=== PATIENT | female | born 1970 | race Caucasian/White ===

== ENCOUNTER → 2019-08-08 13:58 | Outpatient (CLI) | payer OTHER, SELFPAY ==
--- NOTE | 2019-08-08 14:27 | BI_ITS ---
MAMMOGRAPHY - BILATERAL SCREENING REASON FOR EXAM: Female, 49 years old. Routine annual screening examination. PERTINENT HISTORY: Non-contributory. TECHNIQUE: Digital bilateral breast eliana (3D mammographic acquisition) in the CC and MLO projections. 2-D mediolateral oblique (MLO) and craniocaudad (CC) views of both breasts were obtained. CAD: Full Field Digital Mammography with Computer Added Detection was performed. COMPARISON: Comparison is made with prior examination of August 11, 2014. FINDINGS: Breast Composition: The breasts are extremely dense, which lowers the sensitivity of mammography. There are no dominant masses or suspicious calcifications. No other significant abnormalities are identified. There has been no significant change since the prior study. BI/SCREEN MAMM (CAD) W/ELIANA BILAT IMPRESSION: Stable bilateral screening mammogram. Yearly follow-up mammogram recommended. (A) ASSESSMENT CATEGORY: BIRADS Category 1: Negative. A letter regarding these results will be sent to the patient by the facility within 30 days. Approximately 10% of breast cancers are not detected by mammography. A normal mammogram should not delay biopsy of a clinically suspicious abnormality. [id number] Electronically Signed: Alphonso Saucedo, at 15:45 EST , Service support ,
== END ==
PROVIDERS: Family Provider Family Medicine; PCP Family Medicine; Referring Provider Obstetrics & Gynecology; Visit Provider Obstetrics & Gynecology
DX: Z12.31 Encounter for screening mammogram for malignant neoplasm of breast (principal)
CPT/HCPCS: 77063; 77067

== ENCOUNTER → 2023-02-22 | Outpatient (CLI) | payer BC, SELFPAY ==
--- NOTE | 2023-02-22 | EMB_PTH ---
PATIENT: JULIANA PEREZ LOC: [facility] U#:[id number] AGE/SX: 52/F ROOM: RE02/22/[address]: ОЛЬГА Cardenas : 1970 BED: DIS: 02/22/2023 SPEC #: [id number] RECD: 02/22/23 15:05 STATUS: ASH REAriana #: [id number] SAEID: 02/22/23 00:[address]: Barbara Ford NP DEPT: SURGICAL PATHOLOGY RECD BY: Neyda Tarango ENTERED: 02/23/23 07:55 SP TYPE: ENDOM BX/C OSWALD DR: Dr. Hakan Yu MD Tissues: Endometrium, NOS Procedures: Surgery Specimen Level IV HEADER OPERATION: Endometrial biopsy PRE-OP DIAGNOSIS: Abnormal uterine bleeding TISSUE SUBMITTED: Endometrial tissue MICROSCOPIC DIAGNOSIS Endometrium, biopsy: Disordered proliferative endometrium to simple hyperplasia without atypia. AM:ozzie 02/26/2023 COMMENT Case has been reviewed in consultation with Dr. Piedra who concurs with the above diagnosis. IDC:SJ MICROSCOPIC DESCRIPTION Slides are reviewed. GROSS DESCRIPTION Received is one container labeled with the patient's name and not further designated. The specimen consists of multiple irregular fragments of rodriguez tissue that in aggregate measure 2.2 x 2.0 x 0.2 cm. The specimen is totally submitted in one cassette. / AM:ozzie 02/23/2023 TC:? CPT: 08711
[2023-02-28 12:08] LABS: HPV APTIMA, High Risk Negative (Negative)
== END | disposition home or self-care (01) ==
PROVIDERS: PCP Family Medicine; Referring Provider Nurse Practitioner Women's Health; Visit Provider Nurse Practitioner Women's Health
DX: N93.9 Abnormal uterine and vaginal bleeding, unspecified (principal); Z12.4 Encounter for screening for malignant neoplasm of cervix
CPT/HCPCS: 87624; 88175; 88305; G0145

== ENCOUNTER → 2023-03-01 | Outpatient (CLI) | payer BC, SELFPAY ==
--- NOTE | 2023-03-01 08:07 | US_ITS ---
STUDY: ULTRASOUND OF THE FEMALE PELVIS - COMPLETE REASON FOR EXAM: Female, 52 years old. AUB LMP: Patient is postmenopausal. TECHNIQUE: Transabdominal and Transvaginal TECHNICAL QUALITY: Adequate. COMPARISON: None. FINDINGS: The uterus is anteverted and is tilted to the left side of the pelvis. The uterus measures 10.8 cm x 7.6 x 5.7 cm. Normal uterine cervix. The endometrium is thickened and measures 17 mm in thickness, and is heterogeneous (striated). There is no demonstrated endometrial mass. There is no demonstrated myometrial mass. I.U.D. - The patient does not have an I.U.D. The right ovary is visualized. The right ovary measures 1.8 cm x 2.1 cm x 2 cm. A follicle is seen within the ovary measuring 1.7 cm x 1.5 cm x 2.1 cm. There is no visualized right adnexal mass or complex lesion. There is normal arterial and normal venous vascularity. The left ovary is visualized. The left ovary measures 2.9 cm x 2.3 cm x 2.6 cm. There is no left ovarian cyst or ovarian mass. There is no visualized left adnexal mass or complex lesion. There is normal arterial and normal venous vascularity. There is no fluid in the cul-de-sac. The pre void volume of the bladder was 676 ml. US/Pelvic w/ Transvaginal IMPRESSION: Thickened endometrium with a measurement of 17 mm. 1.7 cm x 1.5 cm x 2.1 cm follicle in the right ovary. Electronically Signed: Alphonso Saucedo MD at 14:31 EDT ,
--- NOTE | 2023-03-01 08:07 | BI_ITS ---
MAMMOGRAPHY - BILATERAL SCREENING REASON FOR EXAM: Female, 52 years old. Routine annual screening examination. PERTINENT HISTORY: Non-contributory. TECHNIQUE: Digital bilateral breast eliana (3D mammographic acquisition) in the CC and MLO projections. 2-D mediolateral oblique (MLO) and craniocaudad (CC) views of both breasts were obtained. CAD: Full Field Digital Mammography with Computer Added Detection was performed. COMPARISON: Comparison is made with prior study August 08, 2019 and August 11, 2014. FINDINGS: Breast Composition: The breasts are extremely dense, which lowers the sensitivity of mammography. There are no dominant masses or suspicious calcifications. No other significant abnormalities are identified. There has been no significant change since the prior study. BI/SCRN MAMM (CAD)W/ELIANA BILAT IMPRESSION: Stable bilateral screening mammogram. Yearly follow-up mammogram recommended. (A) ASSESSMENT CATEGORY: BIRADS Category 1: Negative. A letter regarding these results will be sent to the patient by the facility within 30 days. Approximately 10% of breast cancers are not detected by mammography. A normal mammogram should not delay biopsy of a clinically suspicious abnormality. [id number] Electronically Signed: Alphonso Saucedo MD at 8:56 EDT ,
== END | disposition home or self-care (01) ==
LOC: OPBI 08:05
PROVIDERS: PCP Family Medicine; Referring Provider Nurse Practitioner Women's Health; Visit Provider Nurse Practitioner Women's Health
DX: Z12.31 Encounter for screening mammogram for malignant neoplasm of breast (principal)
CPT/HCPCS: 76830; 76856; 77063; 77067

== ENCOUNTER → 2023-04-19 | Outpatient (CLI) | payer BC, SELFPAY ==
[2023-04-19 10:44] LABS: Absolute Neutrophil Count 3.9 X10^3/uL (2.0-7.7); Basophil# 0.03 X10^3/uL; Basophil% 0.5 % (0-1); Eosinophil# 0.07 X10^3/uL; Eosinophils% 1.3 % (0-5); Hematocrit 42.5 % (37-47); Hemoglobin 13.9 g/dL (12.0-15.0); Lymphocyte % 19.9 % (19-41); Mean Corp Hgb Conc 32.7 g/dL (32-36); Mean Corpuscular Hgb 30.5 pg (27.0-32.0); Mean Corpuscular Volume 93.4 fL (81-99); Mean Platelet Vol. 9.5 fl (6.2-12.0); Monocyte# 0.44 X10^3/uL; Monocyte% 7.9 % (0-10); NRBC Flagged by Analyzer 0 % (0-5); Neutrophil % 70.4 % (47-70); Platelet Count 306 K/mm3 (150-450); RBC Distribution Width CV 12.8 % (11.6-14.6); RBC Distribution Width SD 43.9 fl (35.1-43.9); Red Blood Count 4.55 M/mm3 (4.2-5.4); White Blood Count 5.5 K/mm3 (4.4-11.0)
[2023-04-19 11:25] LABS: ALB/GLOB Ratio 1.1 RATIO (0.9-2.4); AST(SGOT) 14 U/L (15-37); Alanine Aminotransfer ALT/SGPT 18 U/L (13-56); Albumin, Serum 3.7 g/dL (3.2-5.0); Alkaline Phosphatase 77 U/L (45-117); Anion Gap 5 (5-15); BUN 17 mg/dL (7-18); BUN/Creat Ratio 28.7 RATIO (10-20); Calcium,Total 8.5 mg/dL (8.5-10.1); Chloride 104 mmol/L (98-107); Cholesterol 180 mg/dL (200); Creatinine, Serum 0.59 mg/dL (0.55-1.02); EST Glomerular Filtration Rate 114 mL/min (>60); Est Glom Filt Rate - Afr Amer 138 mL/min (>60); Globulin 3.4 g/dL (2.2-4.2); Glucose 98 mg/dL (74-106); High Density Lipoprotein 97 mg/dL; Potassium 3.6 mmol/L (3.5-5.1); Protein, Total 7.1 g/dL (6.4-8.2); Sodium Level 136 mmol/L (136-145); Triglycerides 55 mg/dL; Very Low Density Lipoprotein 11 mg/dL (5-40)
== END | disposition home or self-care (01) ==
LOC: MFPLAB 08:59
PROVIDERS: PCP Family Medicine; Visit Provider Family Medicine
DX: I10 Essential (primary) hypertension (principal)
CPT/HCPCS: 36415; 80053; 80061; 84443; 85025

== ENCOUNTER 2023-05-15 09:02 | Day surgery (SDC) | payer BC, SELFPAY ==
[2023-05-15] VITALS (7 sets, daily range): BP systolic 100–129; BP diastolic 67–84; PULSE 56–88; RESP 16–18; TEMP 36.3–36.8; O2SAT 97–99; BMI 22.3
[2023-05-15 09:34] LABS: Internal QC Validated? YES +Cl - CLEAR BKGD; Record Kit Lot#,Urine Preg HCG0000667200
[2023-05-15 09:37] LABS: Pregnancy, Urine Negative Negative
[2023-05-15] MEDS: Lactated Ringers 1,000 ML 15 ML IV (09:38)
--- NOTE | 2023-05-15 09:56 | HP.PCM_ITS ---
History and Physical Date of Admission: 05/15/23 Intake Vital Signs 03/28/2314:55 05/03/2314:14 05/03/2314:24 Height 5 ft 10.5 in 5 ft 10.5 in 5 ft 10.5 in Weight: 163 lb 8 oz BMI 23.1 BP 129/86 H Intake Visit Reasons: D&C Chief Complaint: Preop Chief Physical Therapist Required: No Is patient in pain?: No Allergies No Known Allergies Allergy (Verified 05/03/23 14:14) Is last menstrual period known: No Post menopausal: Yes Patient : No PFSH Surgical History H/O eye surgery S/P wisdom tooth extraction Social History household members: spouse number of children: 2 current occupational status: employed current occupation: [employer] Smoking Status: Never smoker alcohol intake: current alcohol intake frequency: 0-2 drinks per day substance use type: does not use seatbelt use: never do you feel safe at home: Yes 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 She stopped her menses a year ago and started bleeding like a period last month. ultrasound showed a 1.6 cm endometrium and emb showed simple hyperplasia without atypia. She also complains of bloating. She just started a blood pressure medication (can not remember the name of it) and bp is better controlled. She has scheduled a hysteroscopy D&C placement of mirena IUD. History Past Pregnancies Del. Date Name GA/Weeks Outcome Route Bth Weight Infant Gen Labor Lgth Anesthesia Del Locatn Provider FOB Unknown [place] 1999 Unknown [place] 2001 ROS Const ROS Unobtainable: All systems reviewed & are unremarkable except as noted in H Resp Resp: Reports system reviewed and no additional complaints, except as documented; Denies cough GI GI: Reports as per HPI Psych Psych: Reports system reviewed and no additional complaints, except as documented Exam Const General: cooperative, healthy appearing, comfortable and no acute distress Resp Effort & Inspection: normal respiratory effort Skin General: no rashes or lesions noted Psych Appearance: grossly normal Speech and Movement: speech and movement normal Coding Level of Care Code Off vis,est,level 4 Diagnoses Uterine hyperplasia N85.2 Abnormal uterine bleeding (AUB) N93.9 Assessment and Plan Assessment and Plan (1) Uterine hyperplasia: Status: Acute Comment: simple without atypia Plan: After discussing the patient's diagnosis and treatment plan options, patient wishes to proceed with surgical management. I have discussed with the patient the risks, benefits, and alternatives of the procedure which include but are not limited to risks of anesthesia, bleeding, infection, possible damage to bowel, bladder, or surrounding vasculature which could lead to additional surgery to evaluate any complications. Patient agrees to procedure and wishes to proceed. plan for hysteroscopy dilation and curettage, placement of progesterone IUD. (2) Abnormal uterine bleeding (AUB): Status: Acute Comment:
--- NOTE | 2023-05-15 10:35 | EMB_PTH ---
PATIENT: JULIANA PEREZ LOC: [facility] [place] U#:[id number] AGE/SX: 53/F ROOM: RE05/15/[address]: Dr. Geno Lancaster DO : 1970 BED: DIS: 05/15/2023 SPEC #: [id number] RECD: 05/15/23 15:16 STATUS: ASH CORONADO #: [id number] SAEID: 05/15/23 10:[address]: Geno Lancaster DEPT: SURGICAL PATHOLOGY RECD BY: Neyda Tarango ENTERED: 05/16/23 09:10 SP TYPE: ENDOM BX/C OTHR DR: Ratna Hernandez MD Tissues: Endometrium, NOS Procedures: Surgery Specimen Level IV HEADER OPERATION: Hysteroscopy, D & C, IUD insertion PRE-OP DIAGNOSIS: Uterine hyperplasia, abnormal uterine bleeding TISSUE SUBMITTED: Endometrial curettings MICROSCOPIC DIAGNOSIS Endometrium, curettings: Disordered proliferative endometrium to simple hyperplasia without atypia. Focal squamous morular metaplasia with breakdown. AM:ozzie 05/17/2023 COMMENT Reference is made to the patient's previous endometrial biopsy ([id number]) in which disordered proliferative endometrium to simple hyperplasia without atypia was identified. Case has been reviewed in consultation with Dr. Piedra who concurs with the above diagnosis. IDC:GIRISH MICROSCOPIC DESCRIPTION Slides are reviewed. GROSS DESCRIPTION Received in fixative is one container labeled with the patient's name and designated endometrial curettings. The specimen consists of multiple fragments of hemorrhagic soft tissue that in aggregate measure 2.5 x 1.0 x 0.1 cm. The specimen is totally submitted in one cassette. / GIRISH:ozzie 05/16/2023 TC:5 CPT: 99913
--- NOTE | 2023-05-15 10:52 | DCINST_ITS ---
Discharge Instructions Diet Discharge Diet: No restrictions Activity Discharge Activity: Return to Normal Activity, May Shower and May Take a Tub Bath (after 1 week) May resume sexual activity in: 1-2 weeks Weight Bearing Status: Weight bearing as tolerated Lifting Restrictions: none Dressing / Incision Call your doctor if you observe: Fever of 101 or Higher, Using more than 1 pad per hour, Shortness of breath and Uncontrolled pain Follow Up Care Please Follow Up With: Geno Lancaster DO When: Call [phone] to schedule appointment. Test Results: Test results from this visit will be discussed in further detail at your follow- up appointment, if applicable. Discharge Plan Admission Primary Reason for Your Visit: status post dilation and curettage, placement of IUD Attending Provider: Geno Lancaster Primary Care Provider: Ratna Hernandez Discharge Orders/Prescriptions Prescriptions: New naproxen 500 mg tablet 500 mg PO BID PRN (Reason: pain) Qty: 20 0RF Continued amlodipine 10 mg tablet 10 mg PO DAILY multivitamin [Daily Multi-Vitamin] Tablet 1 tab PO DAILY calcium 100 mg capsule 100 mg PO DAILY lisinopril 5 mg tablet 5 mg PO DAILY Referrals / Follow Up: Ratna Hernandez MD [Primary Care Provider] - Disposition Disposition (needs filled in before D/C Order can be placed): Home, Self Care
[2023-05-15] MEDS: Levonorgestrel IUD (Liletta) 1 EACH INTRA-UTER (11:09)
[2023-05-15] MEDS: Lidocaine 1% (20 ml mdv) 20 ML Vial (11:10)
--- NOTE | 2023-05-15 11:23 | PCM.OPRPT ---
Problems Associated Problem List Diagnoses (1) Uterine hyperplasia: (2) Abnormal uterine bleeding (AUB): Report of Operation Date of Procedure: 05/15/23 Pre-Operative Diagnosis: simple endometrial hyperplasia without atypia, abnormal uterine bleeding Post-Operative Diagnosis: simple endometrial hyperplasia without atypia, abnormal uterine bleeding Surgery/Procedure Performed:: hysteroscopy dilation and curettage, placement of progesterone (LND) Intrauterine device Multi Select Codes Urinary/Genital Urinary/Genital CPT Codes: 44348 Hysteroscopy,EMC, Polypectomy
== END 2023-05-15 12:28 | disposition home or self-care (01) ==
LOC: SDC 09:08 → AC 09:08
PROVIDERS: Anesthesiology; PCP Family Medicine; Referring Provider Obstetrics & Gynecology; Visit Provider Obstetrics & Gynecology
PROC: 0UDB8ZZ Extraction of Endometrium, Via Natural or Artificial Opening Endoscopic (ICD-10-PCS; CPT 58558; principal; 2023-05-15 10:25)
DX: N85.01 Benign endometrial hyperplasia (principal); N85.2 Hypertrophy of uterus; N93.9 Abnormal uterine and vaginal bleeding, unspecified; I10 Essential (primary) hypertension; Z79.899 Other long term (current) drug therapy
CPT/HCPCS: 58558; 58300; 00952; 81025; 88305; J7120; J2405

== ENCOUNTER → 2023-12-10 | Outpatient (CLI) | payer BC, SELFPAY ==
--- NOTE | 2023-12-10 | EMB_PTH ---
PATIENT: JULIANA PEREZ LOC: [facility] U#:[id number] AGE/SX: 53/F ROOM: RE12/10/[address]: Dr. Taylor Bryant MD : 1970 BED: DIS: 12/10/2023 SPEC #: [id number] RECD: 12/10/23 16:50 STATUS: ASH REAriana #: [id number] SAEID: 12/10/23 00:[address]: Taylor Bryant DEPT: SURGICAL PATHOLOGY RECD BY: Dayna Pickard ENTERED: 12/11/23 11:55 SP TYPE: ENDOM BX/C OSWALD DR: Ratna Hernandez MD Tissues: Endometrium, NOS Procedures: Surgery Specimen Level IV HEADER OPERATION: Endometrial biopsy PRE-OP DIAGNOSIS: Abnormal uterine bleeding TISSUE SUBMITTED: Endometrial lining MICROSCOPIC DIAGNOSIS Endometrial biopsy: Consistent exogenous hormone effects. GIRISH/ 12/12/23 MICROSCOPIC DESCRIPTION Slides are reviewed. GROSS DESCRIPTION Received is one container labeled with the patient's name and not further designated. The specimen consists of multiple irregular fragments of hemorrhagic soft tissue that in aggregate measure 2.5 x 0.5 x 0.1 cm. The specimen is totally submitted in one cassette. GIRISH/ 12/11/23 TC:5 CPT: 60462
== END | disposition home or self-care (01) ==
LOC: LABSPEC 16:52
PROVIDERS: PCP Family Medicine; Referring Provider Obstetrics & Gynecology; Visit Provider Obstetrics & Gynecology
DX: N93.9 Abnormal uterine and vaginal bleeding, unspecified (principal)
CPT/HCPCS: 88305

== ENCOUNTER → 2024-03-28 | Outpatient (CLI) | payer BC, SELFPAY ==
--- NOTE | 2024-03-28 08:04 | BI_ITS ---
MAMMOGRAPHY - BILATERAL SCREENING REASON FOR EXAM: Female, 53 years old. Routine annual screening examination. PERTINENT HISTORY: Non-contributory. TECHNIQUE: Digital bilateral breast eliana (3D mammographic acquisition) in the CC and MLO projections. 2-D mediolateral oblique (MLO) and craniocaudad (CC) views of both breasts were obtained. CAD: Full Field Digital Mammography with Computer Added Detection was performed. COMPARISON: Comparison is made with prior study dated March 01, 2023 and August 08, 2019. FINDINGS: Breast Composition: The breasts are extremely dense, which lowers the sensitivity of mammography. There are no dominant masses or suspicious calcifications. No other significant abnormalities are identified. There has been no significant change since the prior study. BI/SCRN MAMM (CAD)W/ELIANA BILAT IMPRESSION: Stable bilateral screening mammogram. Yearly follow-up mammogram recommended. (A) ASSESSMENT CATEGORY: BIRADS Category 1: Negative. A letter regarding these results will be sent to the patient by the facility within 30 days. Approximately 10% of breast cancers are not detected by mammography. A normal mammogram should not delay biopsy of a clinically suspicious abnormality. [id number] Electronically Signed: Alphonso Saucedo MD at 9:23 EDT ,
== END | disposition home or self-care (01) ==
LOC: OPBI 08:03
PROVIDERS: PCP Family Medicine; Referring Provider Family Medicine; Visit Provider Family Medicine
DX: Z12.31 Encounter for screening mammogram for malignant neoplasm of breast (principal)
CPT/HCPCS: 77063; 77067

== ENCOUNTER → 2024-06-11 | Outpatient (CLI) | payer BC, SELFPAY ==
--- NOTE | 2024-06-11 | EMB_PTH ---
PATIENT: JULIANA PEREZ LOC: [facility] U#:[id number] AGE/SX: 54/F ROOM: RE06/11/[address]: Dr. Taylor Bryant MD : 1970 BED: DIS: 06/11/2024 SPEC #: [id number] RECD: 06/11/24 12:33 STATUS: ASH CORONADO #: [id number] SAEID: 06/11/24 00:[address]: Taylor Bryant DEPT: SURGICAL PATHOLOGY RECD BY: Neyda Tarango ENTERED: 06/11/24 13:44 SP TYPE: ENDOM BX/C DONATOHR DR: Ratna Hernandez MD Tissues: A - Endometrium, NOS B - POLYP Procedures: Surgery Specimen Level IV HEADER OPERATION: Endometrial biopsy PRE-OP DIAGNOSIS: Uterine hyperplasia TISSUE SUBMITTED: A- Endometrial biopsy, B- Polyp MICROSCOPIC DIAGNOSIS A. Endometrial biopsy: Fragments of benign endometrial tissue with extensive exogenous hormone effects. Negative for hyperplasia. B. Polyp, biopsy: Inflamed benign ectocervical and endocervical polyp. SJ.mr 06/12/2024 COMMENT Please make reference to previous specimen [id number] endometrium, biopsy with diagnosis of disordered proliferative endometrium to simple hyperplasia without atypia. [id number] endometrium, currettings with diagnosis of disordered proliferative endometrium to simple hyperplasia without atypia and focal squamous morular metaplasia with breakdown. [id number] endometrial biopsy with diagnosis of consistent with exogenous hormone effects. MICROSCOPIC DESCRIPTION Slides are reviewed. GROSS DESCRIPTION A. Received in fixative is one container labeled with the patient's name and designated Endometrial biopsy. The specimen consists of multiple irregular fragments of hemorrhagic soft tissue that in aggregate measure 2.0 x 1.0 x 0.1 cm. The specimen is totally submitted in one cassette. B. Received in fixative is one container labeled with the patient's name and designated Polyp. The specimen consists of a rodriguez-pink polyp measuring 2.0 x 0.9 x 0.3cm. The entire specimen is submitted in one cassette. SJ.mr 06/11/2024 TC:5 CPT:96007d5
== END | disposition home or self-care (01) ==
LOC: LABSPEC 11:37
PROVIDERS: PCP Family Medicine; Referring Provider Obstetrics & Gynecology; Visit Provider Obstetrics & Gynecology
DX: N85.00 Endometrial hyperplasia, unspecified (principal); N84.1 Polyp of cervix uteri
CPT/HCPCS: 88305

== ENCOUNTER → 2024-09-09 | Outpatient (CLI) | payer BC, SELFPAY ==
[2024-09-09 10:26] LABS: Absolute Lymphocyte Count 1.05 X10^3/uL (0.83-4.51); Absolute Neutrophil Count 3.5 X10^3/uL (2.0-7.7); Basophil# 0.03 X10^3/uL; Basophil% 0.6 % (0-1); Eosinophil# 0.13 X10^3/uL; Eosinophils% 2.6 % (0-5); Hematocrit 39.7 % (37-47); Hemoglobin 13.1 g/dL (12.0-15.0); Lymphocyte # 1.05 X10^3/ul (0.83-4.51); Lymphocyte % 20.9 % (19-41); Mean Corpuscular Hgb 30.3 pg (27.0-32.0); Mean Corpuscular Volume 91.9 fL (81-99); Mean Platelet Vol. 9.5 fl (6.2-12.0); Monocyte# 0.32 X10^3/uL; Monocyte% 6.4 % (0-10); NRBC Flagged by Analyzer 0 % (0-5); Neutrophil # 3.48 X10^3/uL (2.7-7.7); Neutrophil % 69.3 % (47-70); Platelet Count 303 K/mm3 (150-450); RBC Distribution Width CV 12.4 % (11.6-14.6); Red Blood Count 4.32 M/mm3 (4.2-5.4)
[2024-09-09 10:42] LABS: ALB/GLOB Ratio 1.1 RATIO (0.9-2.4); AST(SGOT) 14 U/L (15-37); Alanine Aminotransfer ALT/SGPT 24 U/L (13-56); Albumin, Serum 3.6 g/dL (3.2-5.0); Alkaline Phosphatase 74 U/L (45-117); Anion Gap 3 (5-15); BUN 19 mg/dL (7-18); BUN/Creat Ratio 29.6 RATIO (10-20); Calcium,Total 9.3 mg/dL (8.5-10.1); Chloride 105 mmol/L (98-107); Cholesterol 197 mg/dL (200); Creatinine, Serum 0.64 mg/dL (0.55-1.02); EST Glomerular Filtration Rate 103 mL/min (>60); Est Glom Filt Rate - Afr Amer 125 mL/min (>60); Globulin 3.3 g/dL (2.2-4.2); Glucose 105 mg/dL (74-106); High Density Lipoprotein 103 mg/dL; Potassium 4.1 mmol/L (3.5-5.1); Protein, Total 6.9 g/dL (6.4-8.2); Sodium Level 138 mmol/L (136-145); Triglycerides 48 mg/dL; Very Low Density Lipoprotein 10 mg/dL (5-40)
== END | disposition home or self-care (01) ==
LOC: MFPLAB 08:27
PROVIDERS: PCP Family Medicine; Referring Provider Family Medicine; Visit Provider Family Medicine
DX: I10 Essential (primary) hypertension (principal)
CPT/HCPCS: 36415; 80053; 80061; 85025

== ENCOUNTER → 2025-04-06 | Outpatient (CLI) | payer BC, SELFPAY ==
--- NOTE | 2025-04-06 15:54 | BI_ITS ---
EXAM: SCRN MAMM (CAD)W/ELIANA BILAT DATE: 04/06/2025 CLINICAL HISTORY: F, Age 54 y/o , SCREENING TECHNIQUE: SCRN MAMM (CAD)W/ELIANA BILAT COMPARISON: Prior exam(s) were compared FINDINGS: TISSUE DENSITY: The breasts are heterogeneously dense, which may obscure small masses. Bilateral Breast Mammographic Findings: No suspicious masses, calcifications or other abnormalities are identified. BI/SCRN MAMM (CAD)W/ELIANA BILAT IMPRESSION: No mammographic evidence of malignancy in either breast. OVERALL FINAL ASSESSMENT BI-RADS 1: NEGATIVE. RECOMMENDATION: Routine annual follow-up in 1 Year A letter with findings and recommendations will be mailed to the patient. Reading Location: [id number]
== END | disposition home or self-care (01) ==
LOC: OPBI 15:53
PROVIDERS: PCP Family Medicine; Referring Provider Nurse Practitioner Family; Visit Provider Nurse Practitioner Family
DX: Z12.31 Encounter for screening mammogram for malignant neoplasm of breast (principal)
CPT/HCPCS: 77063; 77067

== ENCOUNTER → 2025-07-18 | Outpatient (CLI) | payer BC, SELFPAY ==
--- NOTE | 2025-07-18 09:33 | RAD_ITS ---
PROCEDURE: THORACIC SPINE 2 VIEWS 07/18/2025 REASON FOR EXAM: SPINE PAIN TECHNIQUE: Procedure Code: RADSPT2 Modality: DX Procedure: THORACIC SPINE 2 VIEWS COMPARISON: None FINDINGS: Vertebrae: Four views of the thoracic spine were obtained and demonstrate no spondylolysis. Discs: Degenerative disc disease is seen involving several of the upper and mid thoracic disc spaces. Alignment: There is slight increased kyphotic curvature of the thoracic spine. There is a very subtle levoscoliosis of the thoracic spine. Other: Mild spondylosis of the thoracic spine is noted. RAD/Thoracic Spine 2 Views IMPRESSION: Degenerative disc disease is seen involving several of the upper and mid thorac ic disc spaces. There is also mild spondylosis of the thoracic spine. Reading Location: [id number]
--- OUTSIDE RECORDS SUMMARY | 2025-07-18 09:50 | XMS RPT_ITS | CCD ---
Author Organization [facility] Care Team Providers Care Civil Engineer Land [employer] Name Role Phone Dr. Ceasar Yu Primary Care Provider Dr. Ceasar Yu Referring Provider Logan APPAREL CUTTER, APPAREL CUTTER-C Barbara Attending Provider Dr. Geno Lancaster Attending Provider [phone] MD aRtna Hernandez Primary Care Provider Dr. Geno Lancaster Referring Provider [phone] Dr. Geno Lancaster Other Provider MD Ratna Hernandez Primary Care Provider MD Ratna Hernandez Referring Provider Dr. Taylor Bryant Attending Provider Mary WARREN, Ratna Primary Care Provider [phone] Shanda APPAREL CUTTER-C, Madhavi Attending Provider Shanda APPAREL CUTTER-C, Madhavi Referring Provider Shanda APPAREL CUTTER, Madhavi Attending Unavailable Shanda APPAREL CUTTER, Madhavi Referring Unavailable Ratna Hernandez Primary Care Unavailable Taylor Bryant Attending Unavailable Taylor Bryant Referring Unavailable Ratna Hernandez Primary Care Unavailable Ratna Hernandez Attending Unavailable Ratna Hernandez Referring Unavailable Ratna Hernandez Primary Care Unavailable Ratna Hernandez Referring Unavailable Taylor Bryant Attending Unavailable Ratna Hernandez Primary Care Unavailable Medications Current Medications Medication Drug Class(es) Dates Sig (Normalized) Sig (Original) amLODIPine 10 mg oral tablet (3 sources) Dihydropyridine Calcium Channel Yanet Start: 05-09-2023 take 1 tablet by mouth once daily Amlodipine 10 mg tablet Active 10 mg PO DAILY May 09, 2023 12:00am Calcium (3 sources) Phosphate Binder, Calcium Start: 05-09-2023 take 1 capsule by mouth once daily Calcium 100 mg capsule Active 100 mg PO DAILY May 09, 2023 12:00am Start: 05-09-2023 take 100 mg by mouth once ej y Calcium Active 100 MG PO DAILY May 09, 2023 12:00am levonorgestrel 0.424304 mg/hr intrauterine system (2 sources) Progestin, Progestin-containing Intrauterine Device Start: 11-28-2023 Levonorgestrel (Liletta) 20.4 mcg/24 hrs (8 yrs) 52 mg intrauterine device Active 1 NMA INTRA-UTER ONCE November 28, 2023 12:00am as a single dose Start: 11-28-2023 Levonorgestrel (Liletta) 20.4 mcg/24 hrs (8 yrs) 52 mg intrauterine device Active 1 DEVICE INTRA-UTER ONCE November 28, 2023 12:00am as a single dose lisinopril 5 mg oral tablet (5 sources) Angiotensin Converting Enzyme Inhibitor Start: 12-10-2023 take 4 tablets by mouth once daily Lisinopril 5 mg tablet Active 20 mg PO DAILY December 10, 2023 3:31pm BP Start: 12-10-2023 take 20 mg by mouth once daily Lisinopril Active 20 MG PO DAILY December 10, 2023 3:31pm Start: 05-14-2023 End: 12-10-2023 take 1 tablet by mouth once daily Lisinopril 5 mg tablet Discontinued 5 mg PO DAILY May 14, 2023 12:00am December 10, 2023 3:32pm BP Multivitamin (Daily Multi-Vitamin) tablet (3 sources) Start: 05-09-2023 Multivitamin ( Daily Multi-Vitamin) tablet Active 1 {tbl} PO DAILY May 09, 2023 12:00am Start: 05-09-2023 take 1 tablet by tamy th once daily Multivitamin (Daily Multi-Vitamin) tablet Active 1 TABLET PO DAILY May 09, 2023 12:00am naproxen 500 mg oral tablet (3 sources) Nonsteroidal Anti-inflammatory Drug Start: 05-15-2023 take 1 tablet by mouth twice daily as needed for pain Naproxen 500 mg tablet Active 500 mg PO TWICE A DAY as needed for pain 20 0 May 15, 2023 12:00am Problems Active Problems Problem Classification Problem Date Documented Date Episodic/Chronic Contraceptive and procreative management (4 sources) Intrauterine contraceptive device in situ; Translations: [Presence of (intrauterine) contraceptive device] 12-10-2023 Episodic Comment on above: iud removed Essential hypertension (1 source) Essential (primary) hypertension; Translations: [Essential (primary) hypertension] Onset: 09-29-2024 Chronic Other female genital disorders (4 sources) Abnormal uterine bleeding; Translations: [Abnormal uterine and vaginal bleeding, unspecified] 02-22-2023 Chronic Comment on above: EMB pending, US orde red Other female genital disorders (5 sources) Abnormal uterine and vaginal bleeding, unspecified; Translations: [Unspecified disorders of menstruation and other abnormal bleeding from female genital tract] 02-22-2023 Chronic Other female genital disorders (1 source) Endometrial hyperplasia, unspecified; Translations: [Endometrial hyperplasia, unspecified] Onset: 07-01-2024 Chronic Other female genital disorders (3 sources) Disorder of uterus; Translations: [Hypertrophy of uterus] 03-28-2023 Episodic Comment on above: simple without atypi a, repeat emb in 6 months again, Other female genital disorders (1 source) Endocervical polyp; Translations: [Polyp of cervix uteri] 06-11-2024 Episodic Other screening for suspected conditions (not mental disorders or infectious disease) (1 source) Encounter for screening mammogram for malignant neoplasm of breast; Translations: [Encounter for screening mammogram for malignant neoplasm of breast] Onset: 04-13-2025 Episodic Past or Other Problems Problem Classification Problem Date Documented Da te Episodic/Chronic Other female genital disorders (5 sources) Hypertrophy of uterus; Translations: [Hypertrophy of uterus] Onset: 06-11-2024 03-28-2023 Episodic Results Test Name Value Interpretation Reference Range Facility Breast imaging reportOrdered By: Hoda Thompson on 04-06-2025 Study report [facility] [address] [place] [address] SCRN MAMM (CAD)W/ELIANA WALDEN MR#: [id number] Acct: [id number] Name: JULIANA PEREZ Rep #: [id number] : 1970 F 54 From: Jonathan Lin MD PCP: Dr. Ratna Hernandez MD Status: REG CL I Study:SCRN MAMM (CAD)W/ELIANA BILAT Date of Exa m: 04/06/25 Exam# [id number] Ordering Dr: Kinga Land APPAREL CUTTER APPAREL CUTTER-C EXAM: SCRN MAMM (CAD)W/ELIANA BILAT DATE: 04/06/2025 CLINICAL HISTORY: F, Age 54 y/o , SCREENING TECHNIQUE: SCRN MAMM (CAD)W/ELIANA BILAT COMPARISON: Prior exam(s) were compared FINDINGS: TISSUE DENSITY: The breasts are heterogeneously dense, which may obscure small masses. Bilateral Breast Mammographic Findings: No suspicious masses, calcifications or other abnormalities are identified. BI/SCRN MAMM (CAD)W/ELIANA BILAT IMPRESSION: No mammographic evidence of malignancy in either breast. OVERALL FINAL ASSESSMENT BI-RADS 1: NEGATIVE. RECOMMENDATION: Routine annual follow-up in 1 Year A letter with findings and recommendations will be mailed to the patient. Reading Location: [id number] CC: APPAREL CUTTER-C Madhavi Land; Dr. Ratna Hernandez MD ~ [place] Operator: Signed [facility] SCRN MAMM (CAD)W/ELIANA BILATo n 04-06-2025 SCRN MAMM (CAD)W/ELIANA BILAT [facility] [address] [place], [place] [address] SCRN MAMM (CAD)W/ELIANA BILAT MR#: [id number] Acct: [id number] Name: JULIANA PEREZ Rep #: [id number] : 1970 F 54 From: Hoda Hayes i, MD PCP: Dr. Ratna Hernandez MD Status: REG CLI Study: SCRN MAMM (CAD)W/ELIANA BILAT Date of Exam: 12/26 Exam# [id number] Ordering Dr: Madhavi Land APPAREL CUTTER APPAREL CUTTER-C EXAM: SCRN MAMM (CAD)W/ELIANA BILAT DATE: 04/06/2025 CLINICAL HISTORY: F, Age 54 y/o , SCREENING TECHNIQUE: SCRN MAMM (CAD)W/ELIANA BILAT COMPARISON: Prior exam(s) were compared FINDINGS: TISSUE DENSITY: The breasts are heterogeneously dense, which may obscure small masses. Bilateral Breast Mammographic Findings: No suspicious masses, calcifications or other abnormalities are identified. BI/SCRN MAMM (CAD)W/ELIANA BILAT IMPRESSION: No mammographic evidence of malignancy in either breast. OVERALL FINAL ASSESSMENT BI-RADS 1: NEGATIVE. RECOMMENDATION: Routine annual follow-up in 1 Year A letter with findings and recommendations will be mailed to the patient. Reading Location: [id number] CC: ОЛЬГА Land; Dr. Ratna Hernandez MD Sandfill Operator: Signed Normal [facility] CBC W/Diff, Automatedon 01-0 Absolute Lymph 1.05 X10 3/uL Normal 0.83-4.51 [facility] Comment on above: Order Comment: Order Date: 09/09/24 Order Info: 0184-1 - CBCD Performed By: #### L 500.4100, L100.0100, L500.4050 #### [facility] [address] [place], [address] Absolute Neut 3.5 X10 3/uL Normal 2.0-7.7 [facility] Comment on above: Order Comment: Order Date: 09/09/24 Order Info: 0184-1 - CBCD Performed By: #### L 500.4100, L100.0100, L500.4050 #### [facility] [address] [place], [address] Basophils/100 WBC (Bld) 0.6 % Normal 0-1 [facility] Comment on above: Order Comment: Order Date: 09/09/24 Order Info: 0184-1 - CBCD Performed By: #### L 500.4100, L100.0100, L500.4050 #### [facility] [address] [place], [address] Eosinophils/100 WBC (Bld) 2.6 % Normal 0-5 [facility] Comment on above: Order Comment: Order Date: 09/09/24 Order Info: 0184-1 - CBCD Performed By: #### L 500.4100, L100.0100, L500.4050 #### [facility] [address] [place], [address] Erythrocyte distribution width (RBC) [Ratio] 12.4 % Normal 11.6-14.6 [facility] Comment on above: Order Comment: Order Date: 09/09/24 Order Info: 0184-1 - CBCD Performed By: #### L 500.4100, L100.0100, L500.4050 #### [facility] [address] [place], [address] Hematocrit (Bld) [Volume fraction] 39.7 % Normal 37-47 [facility] Comment on above: Order Comment: Order Date: 09/09/24 Order Info: 0184-1 - CBCD Performed By: #### L 500.4100, L100.0100, L500.4050 #### [facility] [address] [place], [address] Hemoglobin (Bld) [Mass/Vol] 13.1 g/dL Normal 12.0-15.0 [facility] Comment on above: Order Comment: Order Date: 09/09/24 Order Info: 0184-1 - CBCD Performed By: #### L 500.4100, L100.0100, L500.4050 #### [facility] [address] [place], [address] IG% 0.200 Normal 0.0-0.9 [facility] Comment on above: Order Comment: Order Date: 09/09/24 Order Info: 0184-1 - CBCD Result Comment: IG% - Immature Granulocytes (promyelocytes, myelocytes and metamyelocytes) > 1% indicates that a LEFT SHIFT is Present. Performed By: #### L 500.4100, L100.0100, L500.4050 #### [facility] [address] [place], [address] Lymphocytes/100 WBC (Bld) 20.9 % Normal 19-41 [facility] Comment on above: Order Comment: Order Date: 09/09/24 Order Info: 0184-1 - CBCD Performed By: #### L 500.4100, L100.0100, L500.4050 #### [facility] [address] [place], [address] MCH (RBC) [Entitic mass] 30.3 pg Normal 27.0-32.0 [facility] Comment on above: Order Comment: Order Date: 09/09/24 Order Info: 0184- - CBCD Performed By: #### L 500.4100, L100.0100, L500.4050 #### [facility] [address] [place], [address] MCHC (RBC) [Mass/Vol] 33.0 g/dL Normal 32-36 [facility] Comment on above: Order Comment: Order Date: 09/09/24 Order Info: 0184-1 - CBCD Performed By: #### L 500.4100, L100.0100, L500.4050 #### [facility] [address] [place], [address] MCV (RBC) [Entitic vol] 91.9 fL Normal 81-99 [facility] Comment on above: Order Comment: Order Date: 09/09/24 Order Info: 0184-1 - CBCD Performed By: #### L 500.4100, L100.0100, L500.4050 #### [facility] [address] [place], [address] Monocytes/100 WBC (Bld) 6.4 % Normal 0-10 [facility] Comment on above: Order Comment: Order Date: 09/09/24 Order Info: 0184-1 - CBCD Performed By: #### L 500.4100, L100.0100, L500.4050 #### [facility] [address] [place], [address] Neutrophils/100 WBC (Bld) 69.3 % Normal 47-70 [facility] Comment on above: Order Comment: Order Date: 09/09/24 Order Info: 0184-1 - CBCD Performed By: #### L 500.4100, L100.0100, L500.4050 #### [facility] [address] [place], [address] Nucleated RBC (Bld) [#/Vol] 0 10*3/uL Normal 0-5 [facility] Comment on above: Order Comment: Order Date: 09/09/24 Order Info: 0184-1 - CBCD Performed By: #### L 500.4100, L100.0100, L500.4050 #### [facility] [address] [place], [address] Platelet mean volume (Bld) [Entitic vol] 9.5 fL Normal 6.2-12.0 [facility] Comment on above: Order Comment: Order Date: 09/09/24 Order Info: 0184-1 - CBCD Performed By: #### L 500.4100, L100.0100, L500.4050 #### [facility] [address] [place], [address] Platelets (Bld) [#/Vol] 303 10*3/uL Normal 150-450 [facility] Comment on above: Order Comment: Order Date: 09/09/24 Order Info: 0184-1 - CBCD Performed By: #### L 500.4100, L100.0100, L500.4050 #### [facility] [address] [place], [address] RBC (Bld) [#/Vol] 4.32 10*6/uL Normal 4.2-5.4 [facility] Comment on above: Order Comment: Order Date: 09/09/24 Order Info: 0184-1 - CBCD Performed By: #### L 500.4100, L100.0100, L500.4050 #### [facility] [address] [place], [address] RDW SD 42.0 fl Normal 35.1-43.9 [facility] Comment on above: Order Comment: Order Date: 09/09/24 Order Info: 0184-1 - CBCD Performed By: #### L 500.4100, L100.0100, L500.4050 #### [facility] [address] [place], [address] WBC (Bld) [#/Vol] 5.0 10*3/uL Normal 4.4-11.0 [facility] Comment on above: Order Comment: Order Date: 09/09/24 Order Info: 0184-1 - CBCD Performed By: #### L 500.4100, L100.0100, L500.4050 #### [facility] [address] [place], [address] Comprehensive Metabolic Prof ilon 09-09-2024 Albumin [Mass/Vol] 3.6 g/dL Normal 3.2-5.0 [facility] Comment on above: Order Comment: Order Date: 09/09/24 Order Info: 0786-1 - CMP Order Info: [id number] - LIPID Performed By: #### L 500.4100, L100.0100, L500.4050 #### [facility] [address] [place], [address] Albumin/Globulin [Mass ratio] 1.1 {ratio} Normal 0.9-2.4 [facility] Comment on above: Order Comment: Order Date: 09/09/24 Order Info: 0786-1 - CMP Order Info: [id number] - LIPID Performed By: #### L 500.4100, L100.0100, L500.4050 #### [facility] [address] [place], [address] ALK P 74 U/L Normal 45-117 [facility] Comment on above: Order Comment: Order Date: 09/09/24 Order Info: 0786-1 - CMP Order Info: [id number] - LIPID Performed By: #### L 500.4100, L100.0100, L500.4050 #### [facility] [address] [place], [address] ALT [Catalytic activity/Vol] 24 U/L Normal 13-56 [facility] Comment on above: Order Comment: Order Date: 09/09/24 Order Info: 0786- - CMP Order Info: [id number] - LIPID Performed By: #### L 500.4100, L100.0100, L500.4050 #### [facility] [address] [place], [address] AST [Catalytic activity/Vol] 14 U/L Low 15-37 [facility] Comment on above: Order Comment: Order Date: 09/09/24 Order Info: 0786- - CMP Order Info: [id number] - LIPID Performed By: #### L 500.4100, L100.0100, L500.4050 #### [facility] [address] [place], [address] Bilirubin [Mass/Vol] 0.40 mg/dL Normal 0.20-1.00 [facility] Comment on above: Order Comment: Order Date: 09/09/24 Order Info: 0786-1 - CMP Order Info: [id number] - LIPID Result Comment: For patients on eltrombopag therapy, use of Dimension [place] TBIL is not recommended. Performed By: #### L 500.4100, L100.0100, L500.4050 #### [facility] [address] [place], [address] BUN/CRE 29.6 RATIO High 10-20 [facility] Comment on above: Order Comment: Order Date: 09/09/24 Order Info: 0786-1 - CMP Order Info: [id number] - LIPID Performed By: #### L 500.4100, L100.0100, L500.4050 #### [facility] [address] [place], [address] CA,Total 9.3 mg/dL Normal 8.5-10.1 [facility] Comment on above: Order Comment: Order Date: 09/09/24 Order Info: 0786-1 - CMP Order Info: [id number] - LIPID Performed By: #### L 500.4100, L100.0100, L500.4050 #### [facility] [address] [place], [address] Chloride [Moles/Vol] 105 mmol/L Normal 98-107 [facility] Comment on above: Order Comment: Order Date: 09/09/24 Order Info: 0786-1 - CMP Order Info: [id number] - LIPID Performed By: #### L 500.4100, L100.0100, L500.4050 #### [facility] [address] [place], [address] CO2 [Moles/Vol] 30.0 mmol/L Normal 21.0-32.0 [facility] Comment on above: Order Comment: Order Date: 09/09/24 Order Info: 0786-1 - CMP Order Info: [id number] - LIPID Performed By: #### L 500.4100, L100.0100, L500.4050 #### [facility] [address] [place], [address] Creatinine [Mass/Vol] 0.64 mg/dL Normal 0.55-1.02 [facility] Comment on above: Order Comment: Order Date: 09/09/24 Order Info: 0786-1 - CMP Order Info: [id number] - LIPID Result Comment: The validity of the calculated GFR GFRAA in patients over 70 years has not been determined. Clinical correlation is essential. Performed By: #### L 500.4100, L100.0100, L500.4050 #### [facility] [address] [place], [address] EST GFR - AA 125 mL/min Normal >60 [facility] Comment on above: Order Comment: Order Date: 09/09/24 Order Info: 07- - CMP Order Info: [id number] - LIPID Result Comment: Afri can [place] GFR Calc Performed By: #### L 500.4100, L100.0100, L500.4050 #### [facility] [address] [place], [address] GAP 3 Low 5-15 [facility] Comment on above: Order Comment: Order Date: 09/09/24 Order Info: 0786- - CMP Order Info: [id number] - LIPID Performed By: #### L 500.4100, L100.0100, L500.4050 #### [facility] [address] [place], [address] GFR/1.73 sq M.predicted among non-blacks MDRD (S/P/Bld) [Vol rate/Area] 103 mL/min/{1.73_m2} Normal >60 [facility] Comment on above: Order Comment: Order Date: 09/09/24 Order Info: 0786- - CMP Order Info: [id number] - LIPID Result Comment: Non- GFR Calc Performed By: #### L 500.4100, L100.0100, L500.4050 #### [facility] [address] [place], [address] Globulin (S) [Mass/Vol] 3.3 g/dL Normal 2.2-4.2 [facility] Comment on above: Order Comment: Order Date: 09/09/24 Order Info: 0786-1 - CMP Order Info: [id number] - LIPID Performed By: #### L 500.4100, L100.0100, L500.4050 #### [facility] [address] [place], [address] Glucose [Mass/Vol] 105 mg/dL Normal 74-106 [facility] Comment on above: Order Comment: Order Date: 09/09/24 Order Info: 0786-1 - CMP Order Info: [id number] - LIPID Result Comment: Fast ing Glucose result from 100 to 125 mg/dL suggests IMPAIRED HOMEOSTASIS per A.D.A. criteria. Performed By: #### L 500.4100, L100.0100, L500.4050 #### [facility] [address] [place], [address] Potassium [Moles/Vol] 4.1 mmol/L Normal 3.5-5.1 [facility] Comment on above: Order Comment: Order Date: 09/09/24 Order Info: 0786-1 - CMP Order Info: [id number] - LIPID Performed By: #### L 500.4100, L100.0100, L500.4050 #### [facility] [address] [place], [address] Sodium [Moles/Vol] 138 mmol/L Normal 136-145 [facility] Comment on above: Order Comment: Order Date: 09/09/24 Order Info: 0786-1 - CMP Order Info: [id number] - LIPID Performed By: #### L 500.4100, L100.0100, L500.4050 #### [facility] [address] [place], [address] T PROT 6.9 g/dL Normal 6.4-8.2 [facility] Comment on above: Order Comment: Order Date: 09/09/24 Order Info: 0786-1 - CMP Order Info: [id number] - LIPID Performed By: #### L 500.4100, L100.0100, L500.4050 #### [facility] [address] [place], [address] Urea nitrogen [Mass/Vol] 19 mg/dL High 7-18 [facility] Comment on above: Order Comment: Order Date: 09/09/24 Order Info: 0786- - CMP Order Info: [id number] - LIPID Performed By: #### L 500.4100, L100.0100, L500.4050 #### [facility] [address] [place], [address] Lipid Profileon 09-09-2024 Cholesterol [Mass/Vol] 197 mg/dL Normal 200 [facility] Comment on above: Order Comment: Order Date: 09/09/24 Order Info: 07 - CMP Order Info: [id number] - LIPID Result Comment: <200 mg/dL Desirable 200-240 mg/dL Borderline >240 mg/dL High Risk Performed By: #### L 500.4100, L100.0100, L500.4050 #### [facility] [address] [place], [address] Cholesterol in HDL [Mass/Vol] 103 mg/dL Normal [facility] Comment on above: Order Comment: Order Date: 09/09/24 Order Info: 0786 - CMP Order Info: [id number] - LIPID Result Comment: The drugs N-Acetylcysteine and Metamizole may falsely depress this assay. Reference Range HDL <40 mg/dL Low HDL Cholesterol HDL >or= 60 mg/dL High HDL Cholesterol Performed By: #### L 500.4100, L100.0100, L500.4050 #### [facility] [address] [place], [address] Cholesterol in LDL [Mass/Vol] 84 mg/dL Normal 0-130 [facility] Comment on above: Order Comment: Order Date: 09/09/24 Order Info: 0786-1 - CMP Order Info: [id number] - LIPID Performed By: #### L 500.4100, L100.0100, L500.4050 #### [facility] [address] [place], [address] Cholesterol in VLDL [Mass/Vol] 10 mg/dL Normal 5-40 [facility] Comment on above: Order Comment: Order Date: 09/09/24 Order Info: 0786-1 - CMP Order Info: [id number] - LIPID Performed By: #### L 500.4100, L100.0100, L500.4050 #### [facility] [address] [place], [address] Triglyceride [Mass/Vol] 48 mg/dL Normal [facility] Comment on above: Order Comment: Order Date: 09/09/24 Order Info: 0786-1 - CMP Order Info: [id number] - LIPID Result Comment: The drugs N-Acetylcysteine and Metamizole may falsely depress this assay. Serum Triglycerides Reference Interval Normal <150 mg/dL Borderline high 150 - 199 mg/dL High 200 - 499 mg/dL Very High > or = 500 mg/dL Performed By: #### L 500.4100, L100.0100, L500.4050 #### [facility] [address] [place], [place], [address] Marketing/Sales Person Office Visit Reporton 06-11-2024 Marketing/Sales Person Office Visit Report [facility] [address], [address] [place] [address] OFFICE VISIT Date of Service: 06/11/24 MR#: [id number] Acct: [id number] Name: JULIANA PEREZ Rep #: [id number] : 1970 Provider: Dr. Taylor figueroa MD Age/Sex: 54/F [place] [facility] [place]: Signed Intake Vital Signs 12/10/23 15:32 06/11/24 10:33 06/11/24 10:34 Height 5 ft 11 in 5 ft 11 in 5 ft 11 in Weight: 155 lb BMI 21.6 BP 129/83 H Intake Visit Reasons: EMB Dumpman Required: No Is patient in pain?: No Allergies No Known Allergies Allergy (Verified 06/11/24 10:34) Medications ???Medication ???Instructions ???Recorded ???Confirmed ???Type amlodipine 10 mg tablet 10 mg PO DAILY 05/09/23 06/11/24 History calcium 100 mg capsule 100 mg PO DAILY 05/09/23 06/11/24 History multivitamin (Daily Multi-Vitamin 1 tab PO DAILY 05/09/23 06/11/24 History tablet) naproxen 500 mg tablet 500 mg PO BID PRN pain #20 tabs 05/15/23 06/11/24 Rx levonorgestrel 20.4 mcg/24 hr (up 1 device intrauterine ONCE 11/28/23 06/11/24 History to 8 yrs) 52 mg intrauterine device (Liletta) lisinopril 5 mg tablet 20 mg PO DAILY BP 12/10/23 06/11/24 History Is last menstrual period known: No Post menopausal: No Patient : No PFSH PFSH Medical History IUD (intrauterine device) in place Alcohol use Surgical History H/O dilation and curettage H/O eye surgery S/P wisdom tooth extraction Social History household members: spouse number of children: 2 current occupational status: employed current occupation: [employer] Smoking Status: Never smoker alcohol intake: current alcohol intake frequency: 0-2 drinks per day substance use type: does not use seatbelt use: never do you feel safe at home: Yes 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 Date Name GA/Weeks Outcome Route Bth Weight Gen Labor Lgth Anesthesia Del Locn Provider FOB Unknown [place] 1999 Unknown [place] 2001 HPI EMB Details: JULIANA PEREZ is a 54 year old who presents for endoemtrial hyperplasia follow up. she denies any bleeding or abnormal discharge, she has had the iud in for a year now and had one normal EMB. she is due for another rpeat biopsy. she denies any pelvic pain. ROS Const Constitutional: Reports system reviewed and no additional complaints, except as documented : Reports system reviewed and no additional complaints, except as documented and as per HPI Exam Const General: cooperative, healthy appearing, comfortable and no acute distress External Female Exam: normal external appearance and normal appearance of the urethra Urethra: normal appearance of the urethra Speculum Exam - Vagina: normal appearance of the vagina and normal vaginal discharge Speculum Exam - Cervix: normal appearance of the cervix (strings seen 3-4 cm in length) Bimanual Exam- Vagina Uterus: normal bimanual exam Bimanual Exam- Adnexa, other: normal adnexae, adnexae mobile and no masses Office Procedures Endometrial Biopsy Endometrial Biopsy Test: Yes Not Applicable Consent Signed: Yes Time out checklist: patient, procedure, site marked/identified, positioning of patient, supplies available, allergies confirmed and team agrees on procedure Time out time: 11:08 tenaculum used: No dilator used: No Details: Cervix prepped with betadine, polyp twisted and removed, after IUD removed, and pipelle inserted into uterus without complication. Specimen obtained and sent to lab for analysis. All instruments removed from vagina without complications. Excellent hemostasis noted. IUD Removal IUD Removal Details: Sign out documentation: Completed Procedure: Speculum placed in vagina, IUD string visualized and grasped with ring forceps. IUD easily removed in its entirety and patient tolerated well. Coding Level of Care Code Off vis,est,level 3 Diagnoses IUD (intrauterine device) in place Z97.5 Uterine hyperplasia N85.2 Encounter for IUD removal Z30.432 Endocervical polyp N84.1 CPT Codes Endometrial Biopsy (36033) Assessment and Plan Assessment and Plan (1) IUD (intrauterine device) in place: Status: Acute Comment: iud removed (2) Uterine hyperplasia: Status: Acute Comment: simple without atypia, repeat emb in 6 months again, (3) Encounter for IUD removal: Status: Acute (4) Endocervical polyp: Status: Acute Orders: Orders Endometrial Biopsy Today N85.2 - Hypertrophy of uterus IUD Removal Today N85.2 - Hypertrophy of uterus Plan Problem list updated and treatment plans were reviewed with the pa (more content not included)... Normal [facility] Surgery Specimen Level Kassandra 06-11-2024 Surgery Specimen Level IV -------- Patient Age/Sex Location Account Attending Physician -------- JULIANA PEREZ 54/F LABSPEC [id number] Dr. Taylor Bryant MD -------- Specimen: [id number] Received: 06/11/24 Status: ASH Maldonadocory Num: [id number] Spec Type: ENDOM BX/C Subm Dr: Dr. Taylor Bryant MD HEADER OPERATION: Endometrial biopsy PRE-OP DIAGNOSIS: Uterine hyperplasia TISSUE SUBMITTED: A- Endometrial biopsy, B- Polyp -------- MICROSCOPIC DIAGNOSIS A. Endometrial biopsy: Fragments of benign endometrial tissue with extensive exogenous hormone effects. Negative for hyperplasia. B. Polyp, biopsy: Inflamed benign ectocervical and endocervical polyp. SJ.mr 06/12/2024 COMMENT Please make reference to previous specimen [id number] endometrium, biopsy with diagnosis of disordered proliferative endometrium to simple hyperplasia without atypia. [id number] endometrium, currettings with diagnosis of disordered proliferative endometrium to simple hyperplasia without atypia and focal squamous morular metaplasia with breakdown. [id number] endometrial biopsy with diagnosis of consistent with exogenous hormone effects. MICROSCOPIC DESCRIPTION Slides are reviewed. GROSS DESCRIPTION A. Received in fixative is one container labeled with the patient's name and designated Endometrial biopsy. The specimen consists of multiple irregular fragments of hemorrhagic soft tissue that in aggregate measure 2.0 x 1.0 x 0.1 cm. The specimen is totally submitted in one cassette. B. Received in fixative is one container labeled with the patient's name and designated Polyp. The specimen consists of a rodriguez-pink polyp measuring 2.0 x 0.9 x 0.3cm. The entire specimen is submitted in one cassette. SJ. 06/11/2024 TC:5 CPT:70550b7 -------- Patient Age/Sex Location Account Attending Physician -------- JULIANA PEREZ 54/F LABSPEC [id number] Dr. Taylor Bryant MD -------- Signed (signature on file) Dr. Bo Piedra MD 06/12/24 1245 -------- Normal [facility] Comment on above: Performed By: #### P SUIV #### [facility] [address] [place], [address] Laboratory - Chemistry and C hemistry - challengeOrdered By: Crispin Perez on 05-15-2023 HCG ( test) Ql (U) Negative [facility] Comment on above: Very dilute urine sp ecimens, as indicated by a low specificgravity, may not contain agency sales representative levels of hCG. If is still suspected, a first morning urinespecimen should be collected 48 hours later and tested. Absolute lymphocyte countOrd ered By: Ratna Hernandez on 04-19-2023 Lymphocytes Auto (Unsp spec) [#/Vol] 1.10 10*3/uL 0.83-4.51 [facility] Basophil percentageOrdered B y: Ratna Hernandez on 04-19-2023 Basophils/100 WBC (Bld) 0.5 % 0-1 [facility] Bilirubin [Mass/Vol] 0.30 mg/dL 0.20-1.00 [facility] Comment on above: For patients on eltr ombopag therapy, use of Dimension [place] TBIL is not recommended. Chloride [Moles/Vol] 104 mmol/L 98-107 [facility] Cholesterol [Mass/Vol] 180 mg/dL <200 [facility] Comment on above: <200 mg/dL Desirable 200-240 mg/dL Borderline >240 mg/dL High Risk Eosinophils/100 WBC (Bld) 1.3 % 0-5 [facility] Glucose [Mass/Vol] 98 mg/dL 74-106 [facility] Neutrophils (Bld) [#/Vol] 3.9 10*3/uL 2.0-7.7 [facility] Neutrophils/100 WBC (Bld) 70.4 % 47-70 [facility] Potassium [Moles/Vol] 3.6 mmol/L 3.5-5.1 [facility] Protein [Mass/Vol] 7.1 g/dL 6.4-8.2 [facility] Sodium [Moles/Vol] 136 mmol/L 136-145 [facility] Triglyceride [Mass/Vol] 55 mg/dL <199 [facility] Comment on above: The drugs N-Acetylcy steine and Metamizole may falsely depress this assay.Serum Triglycerides Reference Interval Normal <150 mg/dL Borderline high 150 - 199 mg/dL High 200 - 499 mg/dL Very High > or = 500 mg/dL WBC (Bld) [#/Vol] 5.5 10*3/uL 4.4-11.0 [facility] Blood erythrocytes count (nu mber/volume)Ordered By: Ratna Hernandez on 04-19-2023 RBC (Bld) [#/Vol] 4.55 10*6/uL 4.2-5.4 [facility] Blood hemoglobin measurement (mass/volume)Ordered By: Ratna Hernandez on 04-19-2023 Hemoglobin (Bld) [Mass/Vol] 13.9 g/dL 12.0-15.0 [facility] Blood lymphocytes/100 leukoc ytesOrdered By: Ratna Hernandez on 04-19-2023 Lymphocytes/100 WBC (Bld) 19.9 % 19-41 [facility] Blood monocytes/100 leukocyt esOrdered By: Ratna Hernandez on 04-19-2023 Monocytes/100 WBC (Bld) 7.9 % 0-10 [facility] Blood platelet mean volumeOr dered By: Ratna Hernandez on 04-19-2023 Platelet mean volume (Bld) [Entitic vol] 9.5 fL 6.2-12.0 [facility] Determination of erythrocyte mean corpuscular volume (MCV)Ordered By: Ratna Hernandez on 04-19-2023 MCV (RBC) [Entitic vol] 93.4 fL 81-99 [facility] Hematocrit Auto (Bld) [Volum e fraction]Ordered By: Ratna Hernandez on 04-19-2023 Hematocrit (Bld) [Volume fraction] 42.5 % 37-47 [facility] - Chemistry and C hemistry - challengeOrdered By: Ratna Hernandez on 04-19-2023 ALP [Catalytic activity/Vol] 77 U/L 45-117 [facility] ALT [Catalytic activity/Vol] 18 U/L 13-56 [facility] CO2 [Moles/Vol] 27.0 mmol/L 21.0-32.0 [facility] Globulin (S) [Mass/Vol] 3.4 g/dL 2.2-4.2 [facility] Urea nitrogen/Creatinine [Mass ratio] 28.7 mg/mg 10-20 [facility] - Hematology and Cell countsOrdered By: Ratna Hernandez on 04-19-2023 Erythrocyte distribution width (RBC) [Entitic vol] 43.9 fL 35.1-43.9 [facility] Erythrocyte distribution width (RBC) [Ratio] 12.8 % 11.6-14.6 [facility] Immature granulocytes/100 WBC (Bld) 0.000 % 0.0-0.9 [facility] Comment on above: IG% - Immature Granu locytes (promyelocytes, myelocytes and metamyelocytes) > 1% indicates that a LEFT SHIFT is Present. MCH (RBC) [Entitic mass] 30.5 pg 27.0-32.0 [facility] Nucleated RBC/100 WBC (Bld) [Ratio] 0 % 0-5 [facility] MCHC Auto (RBC) [Mass/Vol]Or dered By: Ratna Hernandez on 04-19-2023 MCHC (RBC) [Mass/Vol] 32.7 g/dL 32-36 [facility] No Panel InformationOrdered By: Ratna Hernandez on 04-19-2023 Estimated GFR (MDRD) Amer 138 mL/min >60 [facility] Comment on above: GFR Calc Estimated GFR (MDRD) Non-Af Amer 114 mL/min >60 [facility] Comment on above: Non- GFR Calc Thyroid Stimulating Hormone (TSH) 1.90 uIU/mL 0.358-3.74 [facility] Platelets bldOrdered By: Alma Hernandez on 04-19-2023 Platelets (Bld) [#/Vol] 306 10*3/uL 150-450 [facility] Serum or plasma albumin indigo urement (mass/volume)Ordered By: Ratna Hernandez on 04-19-2023 Albumin [Mass/Vol] 3.7 g/dL 3.2-5.0 [facility] Serum or plasma albumin/glob ulin mass ratioOrdered By: Ratna Hernandez on 04-19-2023 Albumin/Globulin [Mass ratio] 1.1 {ratio} 0.9-2.4 [facility] Serum or plasma calcium indigo urement (mass/volume)Ordered By: Ratna Hernandez on 04-19-2023 Calcium [Mass/Vol] 8.5 mg/dL 8.5-10.1 [facility] Serum or plasma cholesterol in HDL measurement (mass/volume)Ordered By: Ratna Mary on 04-19-2023 Cholesterol in HDL [Mass/Vol] 97 mg/dL >40 [facility] Comment on above: The drugs N-Acetylcy steine and Metamizole may falsely depress this assay. Reference Range HDL <40 mg/dL Low HDL Cholesterol HDL >or= 60 mg/dL High HDL Cholesterol Serum or plasma cholesterol in VLDL measurement (mass/volume)Ordered By: Ratna Hernandez on 04-19-2023 Cholesterol in VLDL [Mass/Vol] 11 mg/dL 5-40 [facility] Serum or plasma creatinine m easurement (mass/volume)Ordered By: Ratna Hernandez on 04-19-2023 Creatinine [Mass/Vol] 0.59 mg/dL 0.55-1.02 [facility] Comment on above: The validity of the calculated GFR & GFRAA in patients over 70 years has not been determined. Clinical correlation is essential. Serum or plasma low density lipoprotein (LDL) cholesterol measurement (mass/volume)Ordered By: Ratna Hernandez on 04-19-2023 Cholesterol in LDL [Mass/Vol] 72 mg/dL 0-130 [facility] Serum or plasma urea nitroge n measurement (mass/volume)Ordered By: Ratna Hernandez on 04-19-2023 Urea nitrogen [Mass/Vol] 17 mg/dL 7-18 [facility] Thin prep Papanicolaou smear with manual screeningOrdered By: Ratna Hernandez on 04-19-2023 Thin prep Papanicolaou smear with manual screening 14 U/L 15-37 [facility] Thin prep Papanicolaou smear with manual screening 5 5-15 [facility] Cervical or vagninal specime n microscopic examination by cytology stain (reported asOrdered By: Barbara Ford on 02-22-2023 Cytology report Cyto stain Doc (Cvx/Vag) Comment . [facility] Comment on above: The Pap smear is a s creening test designed to aid in thedetection of premalignant and malignant conditions of theuterine cervix. It is not a diagnostic procedure andshould not be used as the sole means of detecting cervicalcancer. Both false-positive and false-negative reports dooccur. Detection in cervical specim en of any of human papilloma virus (HPV) 16, 18, 31, 33,Ordered By: Barbara Ford on 02-22-2023 HPV 16+18+31+33+35+39+45+51 +52+56+58+59+66+68 DNA Probe+sig amp Ql (Cvx) Negative Negative [facility] Comment on above: This nucleic acid am plification test detects fourteen high-risk HPV types (16,18,31,33,35,39,45,51,52,56,58,59,66,68)without differentiation. Laboratory - CytologyOrdered By: Barbara Ford on 02-22-2023 Machine Sander Cyto stain Nom (Cvx/Vag) [ID] Comment . [facility] Comment on above: Jose Angel Brewer totechnologist (ASCP) Laboratory - Miscellaneous t estsOrdered By: Barbara Ford on 02-22-2023 Service comment (Unsp spec) [Interp] Comment . [facility] Comment on above: This liquid based Th inPrep(R) pap test was screened withthe use of an image guided system. Service comment (Unsp spec) [Interp] . . [facility] Liquid-based cerv Pap + CT/G C by SCHUYLER w reflex to high-risk HPV for ASCUSOrdered By: Barbara Ford on 02-22-2023 Cytology report Cyto stain.thin prep Doc (Cvx/Vag) Comment . [facility] Comment on above: Criteria not met, HP V Genotype not performed.Performed at: [id number] [place], [place] [id number] Director: Theodore Deal MD, Phone: [phone] at: WB - [facility] [address] [id number] Director: Rhona Gallardo MD, Phone: [phone] at: =G - [facility] [address] [id number] Director: Rhona Gallardo MD, Phone: [phone] No Panel InformationOrdered By: Barbara Ford on 02-22-2023 Pathology report final diagnosis Narrative Comment . [facility] Comment on above: NEGATIVE FOR INTRAEP ITHELIAL LESION OR MALIGNANCY. Vital Signs Date Time Vital Sign Value Performing Clinician Faci litsandi 12-10-2023 15:32-0400 Body height 180.34 cm MD Ratna Hernandez Work Phone: [facility] 12-10-2023 15:30-0400 Body mass index (BMI) [Ratio] 21.4 kg/m2 MD Ratna Hernandez Work Phone: [facility] 12-10-2023 15:30-0400 Body weight 69.85 kg MD Ratna Hernandez Work Phone: [facility] 12-10-2023 15:30-0400 Diastolic blood pressure 83 mm[Hg] MD Ratna Hernandez Work Phone: [facility] 12-10-2023 15:30-0400 Systolic blood pressure 133 mm[Hg] MD Ratna Hernandez Work Phone: [facility] 05-15-2023 11:40-0400 Body temperature 98.3 [degF] Dr. Ceasar Yu Work Phone: [facility] 05-15-2023 11:40-0400 Diastolic blood pressure 69 mm[Hg] Dr. Ceasar Yu Work Phone: [facility] 05-15-2023 11:40-0400 Heart rate 61 /min Dr. Ceasar Yu Work Phone: [facility] 05-15-2023 11:40-0400 Respiratory rate 16 /min Dr. Ceasar Yu Work Phone: [facility] 05-15-2023 11:40-0400 SaO2% (BldA) [Mass fraction] 98 % Dr. Ceasar Yu Work Phone: [facility] 05-15-2023 11:40-0400 Systolic blood pressure 106 mm[Hg] Dr. Ceasar Yu Work Phone: [facility] 05-15-2023 09:40-0400 Body height 180.[address] Ceasar Yu Work Phone: [facility] 05-15-2023 09:40-0400 Body mass index (BMI) [Ratio] 22.3 kg/m2 Dr. Ceasar Yu Work Phone: [facility] 05-15-2023 09:40-0400 Body weight 72.[address] Ceasar Yu Work Phone: [facility] 05-03-2023 14:14-0400 Body mass index (BMI) [Ratio] 23.1 kg/m2 Dr. Ceasar Yu Work Phone: [facility] 05-03-2023 14:14-0400 Body weight 74.[address] Ceasar Yu Work Phone: [facility] 05-03-2023 14:14-0400 Diastolic blood pressure 86 mm[Hg] Dr. Ceasar Yu Work Phone: [facility] 05-03-2023 14:14-0400 Systolic blood pressure 129 mm[Hg] Dr. Ceasar Yu Work Phone: [facility] 03-28-2023 14:55-0400 Body mass index (BMI) [Ratio] 23.2 kg/m2 Dr. Ceasar Yu Work Phone: [facility] 03-28-2023 14:55-0400 Body weight 74.[address] Ceasar Yu Work Phone: [facility] 03-28-2023 14:55-0400 Diastolic blood pressure 97 mm[Hg] Dr. Ceasar Yu Work Phone: [facility] 03-28-2023 14:55-0400 Systolic blood pressure 160 mm[Hg] Dr. Ceasar Yu Work Phone: [facility] 02-22-2023 11:06-0400 Diastolic blood pressure 80 mm[Hg] Dr. Ceasar Yu Work Phone: [facility] 02-22-2023 11:06-0400 Systolic blood pressure 136 mm[Hg] Dr. Ceasar Yu Work Phone: [facility] 02-22-2023 10:22-0400 Body height 179.[address] Ceasar Yu Work Phone: [facility] 02-22-2023 10:22-0400 Body mass index (BMI) [Ratio] 22.6 kg/m2 Dr. Ceasar Yu Work Phone: [facility] 02-22-2023 10:22-0400 Body weight 72.[address] Ceasar Yu Work Phone: [facility] Encounters Encounter Date Encounter Type Care Provider Facility Start: 04-06-2025 End: 04-06-2025 ambulatory Ratna Hernandez MD Work Phone: [facility] Start: 04-06-2025 End: 04-06-2025 Patient encounter procedure Madhavi Land [facility] Work Phone: Start: 04-06-2025 End: 04-06-2025 ambulatory Madhavi Land NP Facility:[facility] Start: 09-09-2024 End: 09-09-2024 ambulatory Ratna Hernandez Facility:[facility] Start: 06-11-2024 End: 06-11-2024 ambulatory Ratna Hernandez [place] [place]: 06-11-2024 End: 06-11-2024 ambulatory Taylor Bryant Facility:[facility] Start: 12-10-2023 End: 12-10-2023 ambulatory MD Ratna Hernandez Work Phone: [facility] Work Phone: Start: 12-10-2023 End: 12-10-2023 Patient encounter procedure MD Ratna Hernandez Work Phone: [facility] Specimen Work Phone: Start: 12-10-2023 End: 12-10-2023 Patient encounter procedure MD Ratna Hernandez Work Phone: [facility] Work Phone: Start: 05-15-2023 Non-patient / Non-visit Dr. Ceasar Yu Work Phone: [facility] Start: 05-15-2023 End: 05-15-2023 Admission to same day surgery center Dr. Ceasar Yu Work Phone: [facility] Start: 05-15-2023 End: 05-15-[address] Ceasar Yu Work Phone: [facility] Work Phone: Start: 05-03-2023 End: 05-03-[address] Ceasar Yu Work Phone: [facility] Work Phone: Start: 04-19-2023 End: 04-19-[address] Ceasar Yu Work Phone: [facility] [place] [facility] Start: 03-28-2023 End: 03-28-[address] Ceasar Yu Work Phone: [facility] Work Phone: Start: 03-01-2023 End: 03-01-[address] Ceasar Yu Work Phone: [facility] Work Phone: Start: 02-22-2023 End: 02-22-[address] Ceasar Yu Work Phone: [facility] Work Phone: Start: 02-22-2023 End: 02-22-[address] Ceasar Yu Work Phone: [facility], Specimen Start: 02-22-2023 End: 02-22-[address] Ceasar Yu Work Phone: [facility] Procedures Date Procedure Procedure Detail Performing Clinician Start: 04-06-2025 Screening mammography Jayro Hernandez MD Work Phone: Start: 05-15-[address] Jay Yu Work Phone: Start: 03-01-[address] Jayro Yu Work Phone: Start: 03-01-2023 Screening mammography Jacki Yu Work Phone: H/O: surgery H/O dilation and curettage MD Ratna Hernandez Work Phone: Plan of Treatment Date Care Activity Detail Author Start: 05-15-2023 Ambulation without limitation [facility] Start: 05-15-2023 Medical regimen orde rs management [facility] Start: 05-15-2023 Medication education [facility] Start: 05-15-2023 Patient discharge [facility] Start: 05-15-2023 Procedure discontinued [facility] Start: 05-15-2023 Taking patient vital signs [facility] Start: 05-15-2023 Vital signs measurements [facility] Start: 05-15-2023 [facility] Start: 05-15-2023 Admission procedure [facility] Start: 02-22-2023 Liquid based cervica l cytology screening [facility] MG Breast - bilateral Screening [facility] Path report.final Dx Spec [facility] Patient referral [facility] Work Phone: [facility] Payers Date Payer Category Payer Self-pay [id number] 2023 Unknown [id number] 2016 Unknown [employer] [id number] Unknown [id number] Unknown [employer] [id number] Unknown [facility] [id number] Unknown [id number] Unknown [id number] Unknown [id number] Unknown [id number] Social History Date Type Detail Facility Start: 02-22-2023 End: 06-04-2023 Tobacco smoking status NHIS Unknown if ever smoked [facility] Start: 1970 Sex Assigned At Female [facility] Start: 06-04-2023 Tobacco smoking status NHIS Never smoked tobacco (finding) [facility] NEGATED: Highlighted row [facility] Goals Date Patient Goal Desired Activity /State Mental Status Date Assessment Result Facility 05-15-2023 Cognitive function Voice/Name;Touch/Herber roque [facility] Work Phone: History and physical note 05-15-2023 Note Date & Type Note Facility 05-15-2023 History and physical note Note Date/Time May 15, 2023 9:56am [facility] Medical Records Department [address] [place] [address] History & Physical Exam 05/15/23 0956 MR#: [id number] Acct: [id number] Name: JULIANA PEREZ Rep #:[id number] : 1970 53 From: Geno Lancaster DO PCP: Dr. Ratna Hernandez MD Status:REG SD C Location: [place] [address] History and Physical Date of Admission: 05/15/23 Intake Vital Signs 03/28/2314:55 05/03/2314:14 05/03/2314:24 Height 5 ft 10.5 in 5 ft 10.5 in 5 ft 10.5 in Weight: 163 lb 8 oz BMI 23.1 BP 129/86 H Intake Visit Reasons: D&C Chief Complaint: Preop Dumpman Required: No Is patient in pain?: No Allergies No Known Allergies Allergy (Verified 05/03/23 14:14) Is last menstrual period known: No Post menopausal: Yes Patient : No PFSH Surgical History H/O eye surgery S/P wisdom tooth extraction Social History household members: spouse number of children: 2 current occupational status: employed current occupation: [employer] Smoking Status: Never smoker alcohol intake: current alcohol intake frequency: 0-2 drinks per day substance use type: does not use seatbelt use: never do you feel safe at home: Yes 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 She stopped her menses a year ago and started bleeding like a period last month. ultrasound showed a 1.6 cm endometrium and emb showed simple hyperplasia without atypia. She also complains of bloating. She just started a blood pressure medication (can not remember the name of it) and bp is better controlled. She has scheduled a hysteroscopy D&C placement of mirena IUD. History Past Pregnancies Del. Date Name GA/Weeks Outcome Route Bth Weight Gen Labor Lgth Anesthesia Del Locatn Provider FOB Unknown [place] 2000 Unknown [place] 2002 ROS Const ROS Unobtainable: All systems reviewed & are unremarkable except as noted in H Resp Resp: Reports system reviewed and no additional complaints, except as documented; Denies cough GI GI: Reports as per HPI Psych Psych: Reports system reviewed and no additional complaints, except as documented Exam Const General: cooperative, healthy appearing, comfortable and no acute distress Resp Effort & Inspection: normal respiratory effort Skin General: no rashes or lesions noted Psych Appearance: grossly normal Speech and Movement: speech and movement normal Coding Level of Care Code Off vis,est,level 4 Diagnoses Uterine hyperplasia N85.2 Abnormal uterine bleeding (AUB) N93.9 Assessment and Plan Assessment and Plan (1) Uterine hyperplasia: Status: Acute Comment: simple without atypia Plan: After discussing the patient's diagnosis and treatment plan options, patient wishes to proceed with surgical management. I have discussed with the patient the risks, benefits, and alternatives of the procedure which include but are notlimited to risks of anesthesia, bleeding, infection, possible damage to bowel, bladder, or surrounding vasculature which could lead to additional surgery to evaluate any complications. Patient agrees to procedure and wishes to proceed. plan for hysteroscopy dilation and curettage, placement of progesterone IUD. (2) Abnormal uterine bleeding (AUB): Status: Acute Comment: 05/15/23 0956 <Electronically signed by Geno Lancaster DO> Cosigner Signature (if applicable): CC: Dr. Ratna Hernandez MD; Dr. Geno Lancaster DO~ Signed [facility] Work Phone: Procedure note 05-15-2023 Note Date & Type Note Facility 05-15-2023 Procedure note [facility] [facility] Note Date & Type Note Facility 02-22-2023 Note [facility] Pap Smear Specimen Adequacy February 22, 2023 4:01pm Comment . Satisfactory for evaluation. Endocervical and/or squamous metaplasticcells (endocervical component) are present. Comment on above: Satisfactory for griffin luation. Endocervical and/or squamous metaplasticcells (endocervical component) are present. Discharge summary Note Date & Type Note Facility Discharge summary Note Date/Time May 15, 2023 10:52am [facility] Medical Records Department [address] [place] [address] Instructions for Home/Discharge Instructions 05/15/23 1052 MR#: [id number] Acct: [id number] Name: JULIANA PEREZ Rep #[id number] : 1970 53 From: Geno Lancaster DO PCP: Dr. Ratna Hernandez MD Status:REG SD C Discharge Instructions Diet Discharge Diet: No restrictions Activity Discharge Activity: Return to Normal Activity, May Shower and May Take a Tub Bath (after 1 week) May resume sexual activity in: 1-2 weeks Weight Bearing Status: Weight bearing as tolerated Lifting Restrictions: none Dressing / Incision Call your doctor if you observe: Fever of 101 or Higher, Using more than 1 pad per hour, Shortness of breath and Uncontrolled pain Follow Up Care Please Follow Up With: Geno Lancaster DO When: Call [phone] to schedule appointment. Test Results: Test results from this visit will be discussed in further detail at your follow-up appointment, if applicable. Discharge Plan Admission Primary Reason for Your Visit: status post dilation and curettage, placement of IUD Attending Provider: Geno Lancaster Primary Care Provider: Ratna Hernandez Discharge Orders/Prescriptions Prescriptions: New naproxen 500 mg tablet 500 mg PO BID PRN (Reason: pain) Qty: 20 0RF Continued amlodipine 10 mg tablet 10 mg PO DAILY multivitamin [Daily Multi-Vitamin] Tablet 1 tab PO DAILY calcium 100 mg capsule 100 mg PO DAILY lisinopril 5 mg tablet 5 mg PO DAILY Referrals / Follow Up: Ratna Hernandez MD [Primary Care Provider] - Disposition Disposition (needs filled in before D/C Order can be placed): Home, Self Care 05/15/23 1053<Electronically signed by Geno Lancaster DO>Geno Lancaster DO CC: Dr. Ratna Hernandez MD ~ Signed [facility] Work Phone: Evaluation note Note Date & Type Note Facility Evaluation note Diagnosis Onset Date Abnormal uterine bleeding (AUB) acute [facility] Work Phone: Evaluation note Note Date & Type Note Facility Evaluation note Diagnosis Onset Date Abnormal uterine bleeding (AUB) acute Abnormal uterine bleeding (AUB) acute Uterine hyperplasia acute Abnormal uterine bleeding (AUB) acute Uterine hyperplasia acute Abnormal uterine bleeding (AUB) acute Uterine hyperplasia acute [facility] Work Phone: Evaluation note Note Date & Type Note Facility Evaluation note Diagnosis Onset Date IUD (intrauterine device) in place acute Uterine hyperplasia acute [facility] Work Phone: Evaluation note Note Date & Type Note Facility Evaluation note No assessment information availa ble [facility] Work Phone: Reason for referral (narrative) Note Date & Type Note Facility Reason for referral (narrative) No reason for referral information available [facility] Work Phone: Chief Complaint and Reason for Visit Chief Complaint new pt spotting afte r almost 1 year since menses PAP Reason for Visit Abnormal uterine ble eding (AUB) Chief Complaint new pt spotting afte r almost 1 year since menses PAP SCREENING consult for D&C/possible IUD insertion D&C Hysteroscopy,Dilation and Curettage Hysteroscopy,Dilation and Curettage Reason for Visit Abnormal uterine ble eding (AUB) Abnormal uterine bleeding (AUB) Uterine hyperplasia Abnormal uterine bleeding (AUB) Uterine hyperplasia Abnormal uterine bleeding (AUB) Uterine hyperplasia Chief Complaint EMB AUB Reason for Visit IUD (intrauterine de vice) in place Uterine hyperplasia Chief Complaint Admit Date SCREENING April 06, 2025 3:5 3pm Advance Directives No Advanced Directives Records Found Advance Directive Response Recorded Date/ Time Living Will No May 09 12:54pm Power of Bi Tri Operator No May 09, 2023 12:54pm Summary Purpose Family History No Family History Records Found Additional Source Comments Care Teams (unrecognized sec tion and content) Team Status: Active Member Role Status Dates Dr. Ceasar Yu MD Family Provider Active Dr. Ceasar Yu MD Primary Care Provider Activ e Team Status: Inactive Member Role Status Dates Dr. Ceasar Yu MD Primary Care Provider, Tera rring Provider Active Barbara Ford APPAREL CUTTER, APPAREL CUTTER-C Attending Provider Active Team Status: Inactive Member Role Status Dates Dr. Ceasar Yu MD Primary Care Provider Activ e Barbara Ford APPAREL CUTTER, APPAREL CUTTER-C Attending Provider, Referring Provider Active Team Status: Active Member Role Status Dates Dr. Ceasar Yu MD Family Provider Active Ratna Hernandez MD Primary Care Provider Active Team Status: Inactive Member Role Status Dates Dr. Ceasar Yu MD Primary Care Provider, Refe rring Provider Active Dr. Geno Lancaster DO Attending Provider Activ e Team Status: Inactive Member Role Status Dates Dr. Ceasar Yu MD Referring Provider Active Dr. Geno Lancaster DO Attending Provider Activ e Ratna Hernandez MD Primary Care Provider Active Team Status: Active Member Role Status Dates Dr. Geno Lancaster DO Attending Provider, Referring Provider, Other Provider Active Ratna Hernandez MD Primary Care Provider Active Team Status: Inactive Member Role Status Tez Hernandez MD Primary Care Provider, Attending Prov ider Active Team Status: Inactive Member Role Status Dates Dr. Geno Lancaster DO Attending Provider, Refe rring Provider Active Ratna Hernandez MD Primary Care Provider Active Team Status: Active Member Role Status Dates Dr. Hakan Yu MD Family Provider Active Ratna Hernandez MD Primary Care Provider Active Team Status: Inactive Member Role Status Tez Hernandez MD Primary Care Provider, Referring Prov ider Active Dr. Taylor Bryant MD Attending Provider Active Team Status: Inactive Member Role Status Tez Hernandez MD Primary Care Provider Active Dr. Taylor Bryant MD Attending Provider, Referr ing Provider Active Team Status: Active Member Role/Relationship Status Tez Hernandez MD Primary Care Provider Active Team Status: Inactive Member Role/Relationship Status Tez Hernandez MD Primary Care Provider Active St art: April 06, 2025 End: April 06, 2025 Madhavi Land APPAREL CUTTER, APPAREL CUTTER-C Attending Provider Active S tart: April 06, 2025 End: April 06, 2025 Madhavi Land NP, APPAREL CUTTER-C Referring Provider Active S tart: April 06, 2025 End: April 06, 2025 Goals (unrecognized section and content) Goals may be documented in a n alternate sectionGoals may be documented in an alternate sectionGoals may be documented in an alternate section INFORMATION SOURCE (unrecogn ized section and content) DATE CREATED AUTHOR 04/14/2025 [facility] FOR RECORDS PERTAINING TO PATIENTS WHO ARE OR HAVE BEEN ENROLLED IN A CHEMICAL DEPENDENCY/SUBSTANCEABUSE PROGRAM, SOME INFORMATION MAY BE OMITTED. This clinical summary was aggregated from multiple sources. Caution should be exercised in using it in the provision of clinical care. This summary normalizes information from multiple sources, and as a consequence, information in this document may materially change the coding, format and clinical context of patient data. In addition, data may be omitted in some cases. CLINICAL DECISIONS SHOULD BE BASED ON THE PRIMARY CLINICAL RECORDS. [facility] [employer] [facility]. provides no warranty or guarantee of the accuracy or completeness of information in this document.
== END | disposition home or self-care (01) ==
LOC: RAD 09:31
PROVIDERS: PCP Family Medicine; Referring Provider Family Medicine; Visit Provider Family Medicine
DX: M54.9 Dorsalgia, unspecified (principal)
CPT/HCPCS: 72070